=== PATIENT | male | born 1960 | race Two or more races ===

== ENCOUNTER 2024-11-18 18:47 | Inpatient (IN) | payer MEDICAID ==
[~2024-11-18] VITALS: Ht 185.4 cm; Wt 86.4 kg
[2024-11-19 00:05] VITALS: BP 153/91; PULSE 61; RESP 16; TEMP 97.5; O2SAT 98
[2024-11-19] MEDS ORDERED: magnesium sulf-water 2g/50mL 50 ML IV PRN (01:00)
[2024-11-19] MEDS ORDERED: ondansetron/PF 4mg/2ml inj IV PRN (01:00)
[2024-11-19] MEDS ORDERED: mag hydrox/Alum hydrox/simeth 30ml oral suspension PO PRN (01:00)
[2024-11-19] MEDS ORDERED: acetaminophen 325mg tablet PO PRN ×2 (01:00)
[2024-11-19] MEDS ORDERED: magnesium sulf-water 4G/100mL 100 ML IV PRN (01:00)
[2024-11-19] MEDS ORDERED: potassium Cl 40MEQ/1/2NS 520ml 520 ML IV PRN (01:00)
[2024-11-19] MEDS ORDERED: potassium Cl 20 mEq SR tablet PO PRN ×2 (01:00)
[2024-11-19] MEDS ORDERED: magnesium Cl slow-release 64mg tablet PO PRN (01:00)
[2024-11-19] MEDS ORDERED: magnesium hydroxide 30ml (MOM) UD suspension PO PRN (01:00)
[2024-11-19] MEDS ORDERED: morphine 2 MG/ML inj. syringe IV PRN (01:00)
[2024-11-19] MEDS ORDERED: PYRI-3 PO (01:05)
[2024-11-19] MEDS ORDERED: CYAN500T9 PO (01:05)
[2024-11-19] MEDS ORDERED: MAGN400T56 PO (01:05)
[2024-11-19] MEDS ORDERED: CHOL20002 PO (01:05)
[2024-11-19] MEDS ORDERED: OMEP20CA16 PO (01:05)
[2024-11-19] MEDS ORDERED: ASCO500T23 PO (01:05)
[2024-11-19] MEDS ORDERED: AMLO-708 PO (01:05)
[2024-11-19] MEDS ORDERED: FLUT16SP26 (01:05)
[2024-11-19] MEDS ORDERED: FOLI0.4T14 PO (01:05)
[2024-11-19] MEDS ORDERED: CHLO25TA10 PO (01:05)
[2024-11-19 06:00] VITALS: BP 174/96; PULSE 56; RESP 16; TEMP 98; O2SAT 99
[2024-11-19 07:49] LABS: C-REACTIVE PROTEIN 0.49 MG/DL (0.0-0.5); CHOL/HDL RATIO 1.8 (0.00-4.99); CHOLESTEROL 117 MG/DL (0-200); FREE T4 (FREE THYROXINE) 0.94 NG/DL (0.73-1.40); HDL CHOLESTEROL 64 MG/DL (35-60); LDL CHOLESTEROL 50 MG/DL (50-100); MAGNESIUM 2.2 MG/DL (1.5-2.4); POTASSIUM 4.1 MMOL/L (3.5-5.1); THYROID STIMULATING HORMONE 1.43 ulU/ml (0.34-4.50); TRIGLYCERIDES 33 MG/DL (20-135)
[2024-11-19 08:00] VITALS: RESP 16
[2024-11-19 08:19] LABS: HEMOGLOBIN A1C 6.1 % (4.5-6.2)
[2024-11-19] MEDS: aspirin 81mg, enteric-coated 1 TAB TABLET.DR PO SCH (08:21)
[2024-11-19] MEDS: clopidogrel 75mg tablet PO SCH (08:21)
[2024-11-19] MEDS: docusate sod 100mg capsule PO SCH (08:21)
[2024-11-19] MEDS: heparin, porcine 5000 units/ml vial SQ SCH (08:22)
[2024-11-19] MEDS: atorvastatin 20mg tablet PO SCH (08:22)
[2024-11-19] MEDS: K and/or MAG REPLACEMENT MC SCH (08:44)
[2024-11-19 10:00] VITALS: BP 159/95; PULSE 60; RESP 16; TEMP 98.4; O2SAT 99
[2024-11-19 12:34] LABS: BASOPHILS # (AUTO) 0.1 X10'3 (0-0.2); BASOPHILS % (AUTO) 1.1 % (0-1); EOSINOPHILS # (AUTO) 0.1 X10'3 (0-0.9); EOSINOPHILS % (AUTO) 1.4 % (0-6); HEMATOCRIT 46.3 % (42.0-52.0); HEMOGLOBIN 15.6 g/dl (14.0-17.9); LYMPHOCYTES # (AUTO) 1.1 X10'3 (1.1-4.8); LYMPHOCYTES % (AUTO) 19.5 % (21-51); MEAN CORPUSCULAR HEMOGLOBIN 30.3 PG (27.0-31.0); MEAN CORPUSCULAR HGB CONC 33.6 g/dL (33.0-36.5); MEAN CORPUSCULAR VOLUME 90.2 FL (78-98); MEAN PLATELET VOLUME 7.9 FL (7.4-10.4); MONOCYTES # (AUTO) 0.7 X10'3 (0-0.9); NEUTROPHILS # (AUTO) 3.6 X10'3 (1.8-7.7); PLATELET COUNT 309 X10'3 (140-440); RED BLOOD COUNT 5.13 X10'6 (4.70-6.10); RED CELL DISTRIBUTION WIDTH 14.3 % (11.5-14.5); WHITE BLOOD COUNT 5.5 X10'3 (4.5-11.0)
[2024-11-19 12:43] LABS: ALBUMIN 3.6 G/DL (3.4-5.0); ANION GAP 8 (8-16); BLOOD UREA NITROGEN 17 MG/DL (7-18); BUN/CREATININE RATIO 17.3 (10.0-20.0); CHLORIDE 103 MMOL/L (99-107); CREATININE 0.98 MG/DL (0.60-1.10); GLUCOSE 113 MG/DL (70-104); POTASSIUM 4.3 MMOL/L (3.5-5.1); SODIUM 140 MMOL/L (135-145); TOTAL CARBON DIOXIDE 28.7 MMOL/L (24-32); eCRCL 86 ML/MIN; eGFR 77 ML/MIN
[2024-11-19 12:46] LABS: BILIRUBIN,URINE NEGATIVE (Neg); CLARITY,URINE SLIGHTLY CLOUDY (Clear); COLOR,URINE YELLOW (Yellow); GLUCOSE, URINE NEGATIVE (Neg); KETONES,URINE NEGATIVE (Neg); LEUKOCYTE ESTERASE ,URINE NEGATIVE (Neg); OCCULT BLOOD,URINE NEGATIVE (Neg); PH,URINE 7.5 (4.8-8.0); PROTEIN,URINE NEGATIVE (Neg); UROBILINOGEN,URINE 0.2 E.U/dL (0.2-1.0)
[2024-11-19 12:59] LABS: NITRITES, URINE NEGATIVE (Neg); UA COLLECTION TYPE CLN CATCH MIDSTREAM; URINE AMPHETAMINE SCREEN POSITIVE (Neg); URINE BARBITUATE SCREEN NEGATIVE (Neg); URINE BENZODIAZEPINES SCREEN NEGATIVE (Neg); URINE CANNABINOID SCREEN POSITIVE (Neg); URINE COCAINE SCREEN NEGATIVE (Neg); URINE METHADONE SCREEN NEGATIVE (Neg); URINE OPIATE SCREEN NEGATIVE (Neg); URINE PHENCYCLIDINE SCREEN NEGATIVE (Neg)
[2024-11-19 13:12] LABS: WBC,URINE 0-4 /HPF (0-4)
[2024-11-19 13:13] LABS: BACTERIA,URINE FEW /HPF (Neg); RBC,URINE NONE SEEN /HPF (0-2); SQUAMOUS EPITHELIAL CELL,UR FEW /LPF (FEW)
[2024-11-19] MEDS: normal saline 1000ml 1,000 ML IV SCH (13:16)
[2024-11-19] MEDS ORDERED: haloperidol lactate 5mg/ml inj IM ONE (15:45)
[2024-11-19] MEDS ORDERED: hydrALAZINE 20mg/ml inj. IV PRN (17:30)
== END 2024-11-19 18:28 | disposition left against medical advice (07) | DRG 199 ==
LOC: UNDOADMIN 23:56 → ORTHO 4S 23:56
PROVIDERS: ADMIT Internal Medicine; ATTEND Internal Medicine
DX: I10 Essential (primary) hypertension (principal); F15.10 Other stimulant abuse, uncomplicated; Z53.21 Procedure and treatment not carried out due to patient leaving prior to being seen by health care provider; F17.210 Nicotine dependence, cigarettes, uncomplicated; Z90.81 Acquired absence of spleen; Z88.1 Allergy status to other antibiotic agents
CPT/HCPCS: 36415; 70450; 80048; 80061; 80305; 81001; 83036; 83735; 84132; 84439; 84443; 85025; 85651; 86140; 87081; 93306; 99285; A6590; G0378; J1644; J7030